=== PATIENT | male | born 1975 | race Caucasian/White ===

== ENCOUNTER 2018-07-02 08:37 | Inpatient (IN) | payer MEDICARE, MEDICAID ==
[~2018-07-02] VITALS: Ht 185.4 cm; Wt 103.2 kg
[2018-07-02 09:13] LABS: Urine Bacteria FEW /hpf (None Seen); Urine Blood Negative /uL (Negative); Urine Specific Gravity 1.003 (1.001-1.035); Urine WBC 19 /hpf (0 - 3)
[2018-07-02 09:15] LABS: Basophils # (auto) 0.1 uL; Basophils % (auto) 0.5 % (0.0-2.0); Eosinophils # (auto) 0.4 uL; Eosinophils % (auto) 2.7 % (0.0-7.0); Hematocrit 49.7 % (41.0-53.0); Hemoglobin 16.9 g/dL (13.5-17.5); Lymphocytes # (auto) 2.2 uL; Lymphocytes % (auto) 14.7 % (10.0-50.0); Mean Corpuscular Hemoglobin 30.8 pg (28.0-32.0); Mean Corpuscular Hgb Conc. 33.9 g/dL (32.0-36.0); Mean Corpuscular Volume 90.9 fL (80.0-100.0); Monocytes # (auto) 1.3 uL; Monocytes % (auto) 8.7 % (0.0-12.0); Neutrophils % (auto) 73.4 % (37.0-80.0); Platelet Count (auto) 287 10^3/uL (140-450); Red Blood Cells 5.47 10^6/uL (4.5-5.90)
[2018-07-02 09:37] LABS: Albumin 4.2 g/dL (3.4-5.0); Calcium 8.6 mg/dL (8.5-10.1); Potassium 3.8 mmol/L (3.5-5.1)
[2018-07-02 09:40] LABS: BUN/Creatinine Ratio 4.5; Bilirubin, Total 0.7 mg/dL (0.2-1.0); Total Protein 7.7 g/dL (6.4-8.2)
[2018-07-02] MEDS ORDERED: PIPERACILLIN-TAZOB 3.375GM 100 ML IV ONE (10:30)
[2018-07-02] MEDS ORDERED: SODIUM CHLORIDE 0.9% 1,000 ML IV ONE (10:45)
[2018-07-02] MEDS ORDERED: ONDANSETRON HCL 4 MG/2 ML VIAL IV ONE (10:45)
[2018-07-02] MEDS ORDERED: MORPHINE SULFATE 4 MG/ML SYR/VIAL IV ONE (10:45)
[2018-07-02 10:55] LABS: INR 0.98 (0.9-1.15); Partial Thromboplastin Time 27.5 sec (23.78-33.04); Prothrombin Time 10.5 sec (9.27-12.13)
[2018-07-02] MEDS ORDERED: LORazepam 2MG/ML-1ML VIAL IV PRN (11:00)
[2018-07-02] MEDS ORDERED: MORPHINE SULFATE 4 MG/ML SYR/VIAL IV PRN (11:00)
[2018-07-02] MEDS ORDERED: PANTOPRAZOLE 40 MG/10 ML VIAL IV ONE (11:00)
[2018-07-02] MEDS ORDERED: ONDANSETRON HCL 4 MG/2 ML VIAL IV PRN (11:00)
[2018-07-02] MEDS ORDERED: NITROGLYCERIN 0.4 MG SL TAB SL PRN (11:00)
[2018-07-02] MEDS ORDERED: cefTRIAXone 1GM/50ML D5W 50 ML IV ONE (11:00)
[2018-07-02] MEDS ORDERED: ZOLP10TA PO (11:33)
[2018-07-02] MEDS ORDERED: BUP100T GT (11:34)
[2018-07-02] MEDS ORDERED: FLUO-125 PO (11:35)
[2018-07-02] MEDS ORDERED: [UNRECOGNIZED DRUG - CODE] PO (11:40)
[2018-07-02] MEDS ORDERED: TEST1INJ15 IM (11:40)
[2018-07-02] MEDS ORDERED: HYDR-4683 GT (11:40)
[2018-07-02] MEDS ORDERED: DICL1GEL26 TD (11:40)
[2018-07-02] MEDS ORDERED: TAMS0.4C36 PO (11:40)
[2018-07-02] MEDS ORDERED: HYDR-531 PO (11:40)
[2018-07-02] MEDS ORDERED: ALPR0.254 PO (11:40)
[2018-07-02] MEDS: metroNIDAZOLE 500MG/100ML 100 ML IV SCH ×3 (12:00→23:56)
[2018-07-02 13:00] VITALS: BP 156/76
[2018-07-02] MEDS: MORPHINE SULFATE 4 MG/ML SYR/VIAL IV PRN ×2 (14:02→21:23)
[2018-07-02] MEDS: SODIUM CHLORIDE 0.9% 1,000 ML IV SCH ×2 (14:03→21:22)
[2018-07-02 16:58] VITALS: BP 127/78
[2018-07-02] MEDS: ALPRAZolam 0.25 MG TAB PO SCH (17:18)
[2018-07-02] MEDS: HYDROcodone-ACET 10/325MG TAB PO SCH ×3 (17:18→22:32)
[2018-07-02] MEDS: TAMSULOSIN HYDROCHLORIDE 0.4 MG CAP PO SCH (17:18)
[2018-07-02] MEDS: buPROPion HCL 100 MG TAB GT SCH (21:21)
[2018-07-02] MEDS: ZOLPIDEM TARTRATE 5 MG TAB PO PRN (21:22)
[2018-07-02 21:31] VITALS: BP 135/70
[2018-07-02] MEDS: D AMPHETAMINE SALT COMBO 20 MG PO SCH (21:44)
[2018-07-03] MEDS: D AMPHETAMINE SALT COMBO 20 MG PO SCH ×3 (03:45→21:42)
[2018-07-03 04:40] VITALS: BP 114/75
[2018-07-03] MEDS: metroNIDAZOLE 500MG/100ML 100 ML IV SCH ×3 (05:34→17:40)
[2018-07-03] MEDS: HYDROcodone-ACET 10/325MG TAB PO SCH ×4 (05:35→21:43)
[2018-07-03] MEDS: SODIUM CHLORIDE 0.9% 1,000 ML IV SCH ×2 (05:35→16:38)
[2018-07-03 06:29] LABS: Potassium 3.7 mmol/L (3.5-5.1)
[2018-07-03 06:39] LABS: Albumin 3.4 g/dL (3.4-5.0); BUN/Creatinine Ratio 4.9; Bilirubin, Total 0.8 mg/dL (0.2-1.0); Calcium 8.1 mg/dL (8.5-10.1); Total Protein 6.9 g/dL (6.4-8.2)
[2018-07-03] MEDS: MORPHINE SULFATE 4 MG/ML SYR/VIAL IV PRN ×7 (06:43→20:30)
[2018-07-03 08:00] VITALS: BP 128/80
[2018-07-03 08:20] VITALS: BP 128/80
[2018-07-03] MEDS ORDERED: ceFAZolin 1GM/50ML 50 ML IV ONE (08:40)
[2018-07-03] MEDS: cefTRIAXone 1GM/50ML D5W 50 ML IV SCH (09:00)
[2018-07-03] MEDS ORDERED: MIDAZOLAM HCL 1MG/1ML-2 ML VIAL ONE (09:05)
[2018-07-03] MEDS ORDERED: GLYCOPYRROLATE 0.2 MG/ML 1ML VIAL IV ONE (09:05)
[2018-07-03] MEDS ORDERED: NEOSTIGMINE 1 MG/ML INJ (10mg/10ML VIAL) IV ONE (09:05)
[2018-07-03] MEDS ORDERED: fentaNYL CITRATE 5 ML ONE (09:05)
[2018-07-03] MEDS ORDERED: PROPOFOL 10 MG/ML 20 ML IV ONE (09:05)
[2018-07-03] MEDS ORDERED: ROCURONIUM 10MG/ML 10ML VIAL IV ONE (09:05)
[2018-07-03] MEDS ORDERED: ONDANSETRON HCL 4 MG/2 ML VIAL IV ONE (10:30)
[2018-07-03] MEDS ORDERED: hydrALAZINE HCL 20 MG/ML VL IV PRN (10:30)
[2018-07-03] MEDS ORDERED: ePHEDrine SULFATE 50 MG/ML AMP IV PRN (10:30)
[2018-07-03] MEDS: ALPRAZolam 0.25 MG TAB PO SCH (12:05)
[2018-07-03] MEDS: FLUoxetine HCL 20 MG CAP PO SCH (12:06)
[2018-07-03] MEDS: PANTOPRAZOLE 40 MG/10 ML VIAL IV SCH (12:06)
[2018-07-03] MEDS: buPROPion HCL 100 MG TAB GT SCH ×2 (12:06→21:42)
[2018-07-03 13:00] VITALS: BP 105/65
[2018-07-03 17:05] VITALS: BP 118/66
[2018-07-03] MEDS: TAMSULOSIN HYDROCHLORIDE 0.4 MG CAP PO SCH (17:40)
[2018-07-03] MEDS: ZOLPIDEM TARTRATE 5 MG TAB PO PRN (21:43)
[2018-07-03 22:00] VITALS: BP 150/85
[2018-07-04] MEDS: metroNIDAZOLE 500MG/100ML 100 ML IV SCH ×4 (00:30→17:21)
[2018-07-04] MEDS: MORPHINE SULFATE 4 MG/ML SYR/VIAL IV PRN ×4 (00:30→20:58)
[2018-07-04] MEDS: SODIUM CHLORIDE 0.9% 1,000 ML IV SCH ×3 (03:02→22:01)
[2018-07-04] MEDS: D AMPHETAMINE SALT COMBO 20 MG PO SCH ×3 (03:02→22:00)
[2018-07-04 05:00] VITALS: BP 120/77
[2018-07-04] MEDS: HYDROcodone-ACET 10/325MG TAB PO SCH ×4 (06:41→22:01)
[2018-07-04 08:00] VITALS: BP 132/77
[2018-07-04] MEDS: cefTRIAXone 1GM/50ML D5W 50 ML IV SCH (08:46)
[2018-07-04 08:48] VITALS: BP 132/77
[2018-07-04] MEDS: buPROPion HCL 100 MG TAB GT SCH ×2 (10:46→22:00)
[2018-07-04] MEDS: FLUoxetine HCL 20 MG CAP PO SCH (10:47)
[2018-07-04] MEDS: ALPRAZolam 0.25 MG TAB PO SCH (10:47)
[2018-07-04] MEDS: PANTOPRAZOLE 40 MG/10 ML VIAL IV SCH (10:47)
[2018-07-04 13:00] VITALS: BP 151/90
[2018-07-04 16:31] VITALS: BP 150/91
[2018-07-04] MEDS: TAMSULOSIN HYDROCHLORIDE 0.4 MG CAP PO SCH (17:22)
[2018-07-04 22:00] VITALS: BP 166/95
[2018-07-05 00:03] VITALS: BP 128/70
[2018-07-05] MEDS ORDERED: DOCUSATE SOD 100 MG CAP PO PRN (00:15)
[2018-07-05] MEDS: MORPHINE SULFATE 4 MG/ML SYR/VIAL IV PRN ×2 (01:00→05:00)
[2018-07-05] MEDS: SODIUM CHLORIDE 0.9% 1,000 ML IV SCH (05:18)
[2018-07-05 05:54] VITALS: BP 138/70
[2018-07-05] MEDS: metroNIDAZOLE 500MG/100ML 100 ML IV SCH ×2 (05:58)
[2018-07-05] MEDS: D AMPHETAMINE SALT COMBO 20 MG PO SCH (05:58)
[2018-07-05] MEDS: HYDROcodone-ACET 10/325MG TAB PO SCH (05:59)
[2018-07-05 06:56] LABS: Basophils # (auto) 0.1 uL; Basophils % (auto) 0.6 % (0.0-2.0); Eosinophils # (auto) 0.4 uL; Eosinophils % (auto) 4.8 % (0.0-7.0); Hematocrit 45.7 % (41.0-53.0); Hemoglobin 15.4 g/dL (13.5-17.5); Lymphocytes # (auto) 2.2 uL; Lymphocytes % (auto) 25.7 % (10.0-50.0); Mean Corpuscular Hgb Conc. 33.8 g/dL (32.0-36.0); Mean Corpuscular Volume 91.8 fL (80.0-100.0); Monocytes # (auto) 0.7 uL; Monocytes % (auto) 8.7 % (0.0-12.0); Neutrophils # (auto) 5.1 uL; Neutrophils % (auto) 60.2 % (37.0-80.0); Nucleated Red Blood Cells % 0.1 %; Platelet Count (auto) 233 10^3/uL (140-450); Red Blood Cells 4.98 10^6/uL (4.5-5.90); White Blood Cell 8.5 10^3/uL (4.4-10.8)
[2018-07-05 07:28] LABS: Potassium 3.9 mmol/L (3.5-5.1)
[2018-07-05 07:32] LABS: Albumin 3.3 g/dL (3.4-5.0); BUN/Creatinine Ratio 6.9
[2018-07-05 07:35] LABS: Bilirubin, Total 0.7 mg/dL (0.2-1.0); Total Protein 6.7 g/dL (6.4-8.2)
[2018-07-05] MEDS: cefTRIAXone 1GM/50ML D5W 50 ML IV SCH (08:47)
[2018-07-05 09:00] VITALS: BP 144/59
[2018-07-05] MEDS: buPROPion HCL 100 MG TAB GT SCH (10:24)
[2018-07-05] MEDS: FLUoxetine HCL 20 MG CAP PO SCH (10:24)
[2018-07-05] MEDS: PANTOPRAZOLE 40 MG/10 ML VIAL IV SCH (10:24)
[2018-07-05] MEDS: ALPRAZolam 0.25 MG TAB PO SCH (10:25)
== END 2018-07-05 11:35 | disposition home or self-care (01) | DRG 342 ==
LOC: ER 08:37 → TELE 08:38 → TELE-EAST 13:26
PROVIDERS: ADMIT Internal Medicine; ATTEND Family Medicine
PROC: 0DTJ4ZZ Resection of Appendix, Percutaneous Endoscopic Approach (ICD-10-PCS; principal; 2018-07-03 09:05)
DX: K35.80 Unspecified acute appendicitis (principal); N39.0 Urinary tract infection, site not specified; D72.829 Elevated white blood cell count, unspecified; K66.0 Peritoneal adhesions (postprocedural) (postinfection); F32.9 Major depressive disorder, single episode, unspecified; F41.9 Anxiety disorder, unspecified; G89.4 Chronic pain syndrome; K76.0 Fatty (change of) liver, not elsewhere classified; N28.1 Cyst of kidney, acquired; N40.0 Benign prostatic hyperplasia without lower urinary tract symptoms; R53.82 Chronic fatigue, unspecified; Z82.49 Family history of ischemic heart disease and other diseases of the circulatory system; Z83.3 Family history of diabetes mellitus; Z79.899 Other long term (current) drug therapy; Z88.8 Allergy status to other drugs, medicaments and biological substances
CPT/HCPCS: 36415; 71045; 74176; 80053; 81001; 85025; 85610; 85730; 86850; 86900; 86901; 87040; 87086; 93005; 94761; 96361; 96365; 96375; A6257; C9113; G0378; J0690; J0696; J2250; J2405; J2543; J2704; J3490

== ENCOUNTER 2019-04-26 09:48 | Emergency (ER) | payer MEDICARE, MEDICAID ==
[~2019-04-26] VITALS: Ht 185.4 cm; Wt 90.3 kg
[~2019-04-26 09:48] MED LIST: ALPR0.254 PO; BUP100T GT; DICL1GEL26 TD; FLUO-125 PO; HYDR-4833 GT; HYDR-531 PO; TAMS0.4C36 PO; TEST1INJ15 IM; ZOLP10TA PO; [UNRECOGNIZED DRUG - CODE] PO
[2019-04-26] MEDS ORDERED: SODIUM CHLORIDE 0.9% 1,000 ML IV ONE ×2 (10:14)
[2019-04-26 11:01] LABS: Eosinophils # (auto) 0.2 uL; Monocytes # (auto) 0.8 uL; Red Blood Cells 5.94 10^6/uL (4.5-5.90)
[2019-04-26 11:06] LABS: Basophils # (auto) 0.1 uL; Basophils % (auto) 0.6 % (0.0-2.0); Eosinophils % (auto) 1.6 % (0.0-7.0); Hematocrit 54.1 % (41.0-53.0); Hemoglobin 18.1 g/dL (13.5-17.5); Lymphocytes # (auto) 2.1 uL; Mean Corpuscular Hemoglobin 30.5 pg (28.0-32.0); Mean Corpuscular Hgb Conc. 33.5 g/dL (32.0-36.0); Mean Corpuscular Volume 91.1 fL (80.0-100.0); Monocytes % (auto) 6.4 % (0.0-12.0); Neutrophils % (auto) 74.4 % (37.0-80.0); Nucleated Red Blood Cells % 0.1 %; Platelet Count (auto) 311 10^3/uL (140-450); Red Cell Distribution Width 13.4 % (11.8-14.3)
[2019-04-26 11:10] LABS: Urine Bacteria NONE SEEN /hpf (None Seen); Urine Blood Negative /uL (Negative); Urine Specific Gravity 1.004 (1.001-1.035); Urine WBC <1 /hpf (0 - 3)
[2019-04-26 11:17] LABS: Albumin 4.4 g/dL (3.4-5.0); Anion Gap 5 (5-15); Blood Urea Nitrogen 10 mg/dL (7-18); Calcium 9.3 mg/dL (8.5-10.1); Carbon Dioxide 31 mmol/L (21-32); Chloride 103 mmol/L (98-107); Glucose 94 mg/dL (74-106); Potassium 4.2 mmol/L (3.5-5.1); Sodium 139 mmol/L (136-145)
[2019-04-26 11:19] LABS: Alanine Aminotransferase 32 U/L (16-61); Aspartate Aminotransferase 16 U/L (15-37); BUN/Creatinine Ratio 8.1; GFR African American 83 mL/min; GFR Non-African American 68 mL/min
[2019-04-26 11:23] LABS: Alkaline Phosphatase 52 U/L (45-117); Bilirubin, Total 0.5 mg/dL (0.2-1.0); Total Protein 8.1 g/dL (6.4-8.2)
[2019-04-26 11:25] LABS: Alcohol, Urine < 3.0 mg/dL (0-5); Amphetamine Screen, Urine NEGATIVE (NEGATIVE); Barbiturate Scree,Urine NEGATIVE (NEGATIVE); Benzodiazephine Screen, Urine NEGATIVE (NEGATIVE); Cannabinoid Screen, Urine NEGATIVE (NEGATIVE); Cocaine Screen, Urine NEGATIVE (NEGATIVE); Opiate Scree,Urine NEGATIVE (NEGATIVE); Phencyclidine Screen, Urine NEGATIVE (NEGATIVE)
[2019-04-26] MEDS ORDERED: cefTRIAXone 1GM/50ML D5W 50 ML IV ONE (11:30)
[2019-04-26 12:51] VITALS: BP 139/93
== END 2019-04-26 13:29 | disposition home or self-care (01) ==
LOC: ER 09:50
DX: E86.0 Dehydration (principal); G89.29 Other chronic pain; Z79.899 Other long term (current) drug therapy; Z88.8 Allergy status to other drugs, medicaments and biological substances
CPT/HCPCS: 36415; 70450; 74176; 76775; 80053; 80307; 81001; 84484; 85025; 93005; 96361; 96365; 99284; J0696; J7030